=== PATIENT | male | born 1965 | race Caucasian/White ===

== ENCOUNTER 2018-07-22 00:44 | Emergency (ER) | payer OTHER ==
--- OUTSIDE RECORDS SUMMARY | 2018-07-22 00:47 | XMS REPORT ---
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 Problem Seasonal allergic rhinitis, J30.2 Active unspecified trigger Problem Hypothyroidism E03.9 Active Problem SEBLE (obstructive sleep apnea) G47.33 Active Problem Hypertension I10 Active Problem Asymmetrical sensorineural hearing H90.5 Active loss Problem BMI 40.0-44.9, adult Z68.41 Active Problem Skin lesion L98.9 Active Problem Pure hypercholesterolemia E78.00 Active Assessment Pure hypercholesterolemia E78.00 Active Assessment Seasonal allergic rhinitis, J30.2 Active unspecified trigger Assessment SEBLE (obstructive sleep apnea) G47.33 Active Assessment Hypothyroidism E03.9 Active Medications Medication Code Code Instructions Start End Date Status Dosage System Date Montelukast [facility] 24909056210 10 MG Orally September Active 1 tablet in Sodium Once a day 2017 the evening Tarka ND 28520083188 4-240 MG Orally Active 1 tablet Once a day with food Fenofibric Acid ND 54490951276 135 MG Orally Active 1 capsule Once a day Flonase [facility] 39990561413 50 MCG/ACT September Active 1 spray in Nasally Once a 2017 each day nostril Clarinex-D 12 [facility] 59558099748 2.5-120 MG September Active 1 tablet Hour Orally every 12 2017 hrs Zocor [facility] 57401829802 40 MG Orally Active 1 tablet in Once a day the evening Synthroid ND 52263985425 112 MCG Orally Active 1 tablet on Once a day an empty stomach in the morning Neomycin-Polymy ND 07456771477 40-337251 otic September Active as directed denisse FLOWERS tid in the 2017 affected ear Niacin ND 06224365431 500 MG Orally Active 1 tablet Once a day with food Results No Known Results Summary Purpose eClinicalWorks Submission
--- OUTSIDE RECORDS SUMMARY | 2018-07-22 00:48 | XMS REPORT ---
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 Problem Seasonal allergic rhinitis, J30.2 Active unspecified trigger Problem Hypothyroidism E03.9 Active Problem SEBLE (obstructive sleep apnea) G47.33 Active Problem Hypertension I10 Active Problem Asymmetrical sensorineural hearing H90.5 Active loss Problem BMI 40.0-44.9, adult Z68.41 Active Problem Skin lesion L98.9 Active Problem Pure hypercholesterolemia E78.00 Active Assessment Pure hypercholesterolemia E78.00 Active Assessment Hypothyroidism E03.9 Active Assessment Hypertension I10 Active Assessment SEBLE (obstructive sleep apnea) G47.33 Active Assessment 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 Active Medications Medication Code Code Instructions Start End Status Dosage System Date Date Zocor [facility] 84764768905 40 MG Orally Active 1 tablet Once a day in the evening Clarinex-D 12 [facility] 48398890858 2.5-120 MG Marlyn Active 1 tablet Hour Orally every 2017 hrs Synthroid [facility] 91920203271 112 MCG Orally Active 1 tablet Once a day on an empty stomach in the morning Tarka [facility] 72262249181 4-240 MG Orally Active 1 tablet Once a day with food Fenofibric Acid [facility] 73452806385 135 MG Orally Active 1 capsule Once a day Flonase [facility] 08501145277 50 MCG/ACT Active 1 spray in Nasally Once a each day nostril Montelukast ND 74682943365 10 MG Orally Active 1 tablet Sodium Once a day in the evening Niacin ND 50911365339 500 MG Orally Active 1 tablet bid with food Results No Known Results Summary Purpose eClinicalWorks Submission
--- OUTSIDE RECORDS SUMMARY | 2018-07-22 00:48 | XMS REPORT ---
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 Assessment SEBLE (obstructive sleep apnea) G47.33 Active Assessment BMI 40.0-44.9, adult Z68.41 Active Medications Medication Code Code Instructions Start End Status Dosage System Date Date Niacin [facility] 44819002905 500 MG Orally Active 1 tablet bid with food Synthroid [facility] 33745216248 112 MCG Active TAKE 1 TABLET ONCE DAILY Zocor [facility] 55539316460 40 MG Active TAKE 1 TABLET ONCE DAILY Flonase ND 50849695512 50 MCG/ACT Active 1 spray in Nasally Once a each nostril day Montelukast [facility] 41998326571 10 MG Orally Active 1 tablet in Sodium Once a day the evening Tarka [facility] 55285248349 4-240 MG Active TAKE 1 TABLET ONCE DAILY ATBEDTIME Fenofibric Acid ND 74164706941 135 MG Active TAKE 1 CAPSULE ONCE DAILY Clarinex-D [facility] 47375221031 2.5-120 MG September Active 1 tablet Hour Orally every 12 2017 hrs Results No Known Results Summary Purpose eClinicalWorks Submission
[2018-07-22 01:23] LABS: Absolute Lymphocytes (CBC) 2.8 K/uL (0.7-4.9); Absolute Monocytes 1.3 K/uL (0.1-1.3); Absolute Neutrophil 5.9 K/uL (1.8-8.0); Eosinophils % 3.5 % (0-4.4); Lymphocytes % 27.1 % (15.3-44.8); MPV 9.6 fL (7.6-11.3); Monocytes % 12.4 % (3.3-12.3); RBC Red Blood Cell Count 5.42 M/uL (4.33-5.43)
[2018-07-22] MEDS ORDERED: NA CHLORIDE 0.9% 1,000 ML ONE (01:25)
[2018-07-22] MEDS ORDERED: ONDANSETRON 4 MG/2 ML VIAL ONE (01:25)
[2018-07-22 01:39] LABS: ALT/SGPT 42 U/L (12-78); AST/SGOT 18 U/L (15-37); Albumin 4.3 g/dL (3.4-5.0); Alkaline Phosphatase 57 U/L (45-117); BUN Blood Urea Nitrogen 18 mg/dL (7-18); Bicarbonate 27 mmol/L (21-32); Bilirubin Direct < 0.1 mg/dL (0-0.2); Bilirubin Total 0.3 mg/dL (0.2-1.0); Glucose Level 129 mg/dL (74-106); Lipase 108 U/L (73-393); Potassium 3.9 mmol/L (3.5-5.1); Protein, Total 7.7 g/dL (6.4-8.2); Sodium Level 139 mmol/L (136-145); Troponin (Emerg Dept Use Only) < 0.02 ng/mL (0.0-0.045)
--- NOTE | 2018-07-22 02:25 | ER ---
Nurse's Notes [facility] Name: Levi Downing Age: 52 yrs Sex: Male : 1965 Arrival Date: 07/22/2018 Time: 00:48 Bed 2 Private MD: Thanh Keys Diagnosis: Unspecified abdominal pain Presentation: 07/22 01:05 Presenting complaint: Patient states: epigastric and abd pain since 2100. pt denies ak1 N/V/D. pt denies SOB. Transition of care: patient was not received from another setting of care. Onset of symptoms was July 22, 2018. Risk Assessment: Do you want to hurt yourself or someone else? Patient reports no desire to harm self or others. Initial Sepsis Screen: Does the patient meet any 2 criteria? No. Patient's initial sepsis screen is negative. Does the patient have a suspected source of infection? No. Patient's initial sepsis screen is negative. Care prior to arrival: 150mg tramadol with no relief. 01:05 Method Of Arrival: Ambulatory ak1 01:05 Acuity: LAN 3 ak1 Triage Assessment: 01:07 General: Appears in no apparent distress. Behavior is calm, cooperative. Pain: ak1 Complains of pain in epigastric area, right upper quadrant and left upper quadrant. EENT: No signs and/or symptoms were reported regarding the EENT system. Neuro: No deficits noted. Cardiovascular: No deficits noted. Respiratory: No deficits noted. GI: Abdomen is round Bowel sounds present X 4 quads. Reports upper abdominal pain, cramping, epigastric pain. : No signs and/or symptoms were reported regarding the genitourinary system. Derm: No signs and/or symptoms reported regarding the dermatologic system. Musculoskeletal: No signs and/or symptoms reported regarding the musculoskeletal system. Historical: - Allergies: 01:07 Sulfa (Sulfonamide Antibiotics); ak1 - Home Meds: 01:07 Simvastatin Oral [Active]; ak1 - PMHx: 01:07 High Cholesterol; Hypertension; ak1 - PSHx: 01:07 Vasectomy; ak1 - Immunization history:: Adult Immunizations unknown. - Social history:: Smoking status: Patient/guardian denies using tobacco. - Ebola Screening: : No symptoms or risks identified at this time. Screenin:08 Abuse screen: Denies threats or abuse. Denies injuries from another. Nutritional ak1 screening: No deficits noted. Tuberculosis screening: No symptoms or risk factors identified. Fall Risk None identified. Assessment: 01:12 Pain: Pain does not radiate. Pain began 4 hours ago. ak1 02:19 General: Appears in no apparent distress. pt refused CT scan, pt stated he is feeling ak1 better. ERP notified. pt to sign out AMA. . Vital Signs: 01:04 BP 145 / 79; Pulse 73; Resp 18; Temp 98.4(O); Pulse Ox 97% on R/A; Weight 136.08 kg ak1 (R); Height 6 ft. 0 in. (182.88 cm) (R); Pain 8/10; 02:19 BP 129 / 78; Pulse 70; Resp 16; Pulse Ox 96% on R/A; Pain 0/10; ak1 01:04 Body Mass Index 40.69 (136.08 kg, 182.88 cm) ak1 ED Course: 00:48 Patient arrived in ED. es 00:48 Thanh Keys MD is Private Physician. es 00:51 Jc Vasquez NP is PHCP. pm1 00:51 Quentin Hines MD is Attending Physician. pm1 01:04 Sirisha Ibarra, ISHMAEL is Primary Nurse. ak1 01:04 Arm band placed on Patient placed in an exam room, on a stretcher, on pulse oximetry, ak1 Patient notified of wait time. 01:06 Triage completed. ak1 01:12 Patient has correct armband on for positive identification. Placed in gown. Bed in low ak1 position. Call light in reach. Side rails up X 1. engine monitor on. Pulse ox on. NIBP on. 01:12 Patient maintains SpO2 saturation greater than 95% on room air. ak1 01:20 No provider procedures requiring assistance completed. Inserted saline lock: 20 gauge tl1 in left antecubital area, using aseptic technique. Blood collected. 02:28 IV discontinued, intact, bleeding controlled, No redness/swelling at site. Pressure ak1 dressing applied. Administered Medications: 01:17 Drug: Zofran 4 mg Route: IVP; Infused Over: 2 mins; Site: left antecubital; tl1 02:18 Follow up: Response: No adverse reaction ak1 01:18 Drug: NS 0.9% 1000 ml Route: IV; Rate: 1000 ml; Site: left antecubital; tl1 02:29 Follow up: IV Status: Completed infusion; IV Intake: 1000ml ak1 02:18 Not Given (Patient Refused): morphine 4 mg IVP once ak1 Intake: 02:29 IV: 1000ml; Total: 1000ml. ak1 Outcome: 02:24 Discharge ordered by pm1 02:27 AMA AMA form signed ak1 02:27 Condition: improved 02:28 Patient left the ED. ak1 Signatures: Rosa Huston Tonya RN RN tl1 Sirisha Ibarra RN RN ak1 Jc Vasquez, MEDICAL GRADE SHOEMAKER MEDICAL GRADE SHOEMAKER pm1
--- NOTE | 2018-07-22 02:25 | EDPHYS ---
Physician Documentation [facility] Name: Levi Downing Age: 52 yrs Sex: Male : 1965 Arrival Date: 07/22/2018 Time: 00:48 Bed 2 Private MD: Thanh Keys ED Physician Quentin Hines HPI: 07/22 01:30 This 52 yrs old Male presents to ER via Ambulatory with complaints of Chest pm1 Pain, Abdominal Pain. 01:30 The patient presents with abdominal pain in the upper abdomen. Onset: The pm1 symptoms/episode began/occurred today. The symptoms do not radiate. Associated signs and symptoms: none. Pertinent negatives: nausea, vomiting, and diarrhea, chest pain, constipation, diarrhea, dysuria, fever, headache, shortness of breath. The symptoms are described as burning. Modifying factors: The symptoms are alleviated by nothing, the symptoms are aggravated by food, Ate spicy food prior to onset of pain. Severity of pain: in the emergency department the pain is actually worse. The patient has experienced similar episodes in the past, and the symptoms today are exactly the same, lasted longer. The patient has not recently seen a physician. Historical: - Allergies: 01:07 Sulfa (Sulfonamide Antibiotics); ak1 - Home Meds: 01:07 Simvastatin Oral [Active]; ak1 - PMHx: 01:07 High Cholesterol; Hypertension; ak1 - PSHx: 01:07 Vasectomy; ak1 - Immunization history:: Adult Immunizations unknown. - Social history:: Smoking status: Patient/guardian denies using tobacco. - Ebola Screening: : No symptoms or risks identified at this time. ROS: 01:30 Constitutional: Negative for fever, chills, and weight loss, Eyes: Negative for injury, pm1 pain, redness, and discharge, ENT: Negative for injury, pain, and discharge, Neck: Negative for injury, pain, and swelling, Cardiovascular: Negative for chest pain, palpitations, and edema, Respiratory: Negative for shortness of breath, cough, wheezing, and pleuritic chest pain. 01:30 Back: Negative for injury and pain, : Negative for injury, bleeding, discharge, and swelling, MS/Extremity: Negative for injury and deformity, Skin: Negative for injury, rash, and discoloration, Neuro: Negative for headache, weakness, numbness, tingling, and seizure. 01:30 Abdomen/GI: Positive for abdominal pain, of the right upper quadrant and left upper quadrant, Negative for nausea, vomiting, and diarrhea. Exam: 01:30 Constitutional: This is a well developed, well nourished patient who is awake, alert, pm1 and in no acute distress. Head/Face: Normocephalic, atraumatic. Eyes: Pupils equal round and reactive to light, extra-ocular motions intact. Lids and lashes normal. Conjunctiva and sclera are non-icteric and not injected. Cornea within normal limits. Periorbital areas with no swelling, redness, or edema. ENT: Nares patent. No nasal discharge, no septal abnormalities noted. Tympanic membranes are normal and external auditory canals are clear. Oropharynx with no redness, swelling, or masses, exudates, or evidence of obstruction, uvula midline. Mucous membranes moist. Neck: Trachea midline, no thyromegaly or masses palpated, and no cervical lymphadenopathy. Supple, full range of motion without nuchal rigidity, or vertebral point tenderness. No Meningismus. Chest/axilla: Normal chest wall appearance and motion. Nontender with no deformity. No lesions are appreciated. Cardiovascular: Regular rate and rhythm with a normal S1 and S2. No gallops, murmurs, or rubs. Normal PMI, no JVD. No pulse deficits. Respiratory: Lungs have equal breath sounds bilaterally, clear to auscultation and percussion. No rales, rhonchi or wheezes noted. No increased work of breathing, no retractions or nasal flaring. 01:30 Back: No spinal tenderness. No costovertebral tenderness. Full range of motion. Skin: Warm, dry with normal turgor. Normal color with no rashes, no lesions, and no evidence of cellulitis. MS/ Extremity: Pulses equal, no cyanosis. Neurovascular intact. Full, normal range of motion. 01:30 Abdomen/GI: Inspection: obese Bowel sounds: normal, Palpation: abdomen is soft and non-tender, in all quadrants, mass, is not appreciated, rebound tenderness, is not appreciated. 01:30 Neuro: Orientation: is normal, Motor: is normal, moves all fours. Vital Signs: 01:04 BP 145 / 79; Pulse 73; Resp 18; Temp 98.4(O); Pulse Ox 97% on R/A; Weight 136.08 kg ak1 (R); Height 6 ft. 0 in. (182.88 cm) (R); Pain 8/10; 02:19 BP 129 / 78; Pulse 70; Resp 16; Pulse Ox 96% on R/A; Pain 0/10; ak1 01:04 Body Mass Index 40.69 (136.08 kg, 182.88 cm) ak1 MDM: 00:51 Patient medically screened. pm1 02:22 Data reviewed: vital signs. Data interpreted: Pulse oximetry: on room air is 96 %. pm1 Interpretation: normal. Counseling: I had a detailed discussion with the patient and/or guardian regarding: lab results. 02:22 Refusal of service: The patient/guardian displays adequate decision making capability pm1 and despite a detailed discussion of alternatives, benefits, risks, and consequences refuses: CT Scan, Patient's pain has completely resolved and he wants to forgo the CT and would like to go home. Patient offered prescriptions and patient refused. 07/22 01:00 Order name: Basic Metabolic Panel; Complete Time: :44 pm07/22 01:00 Order name: CBC with Diff; Complete Time: :44 pm07/22 01:00 Order name: Creatinine for Radiology; Complete Time: pm07/22 01:00 Order name: Hepatic Function; Complete Time: pm07/22 01:00 Order name: Lipase; Complete Time: :44 pm07/22 01:00 Order name: Troponin (emerg Dept Use Only); Complete Time: :44 pm07/22 01:00 Order name: IV Saline Lock; Complete Time: :20 pm07/22 01:00 Order name: Labs collected and sent; Complete Time: 01:20 pm1 Administered Medications: 01:17 Drug: Zofran 4 mg Route: IVP; Infused Over: 2 mins; Site: left antecubital; tl1 02:18 Follow up: Response: No adverse reaction ak1 01:18 Drug: NS 0.9% 1000 ml Route: IV; Rate: 1000 ml; Site: left antecubital; tl1 02:29 Follow up: IV Status: Completed infusion; IV Intake: 1000ml ak1 02:18 Not Given (Patient Refused): morphine 4 mg IVP once ak1 Disposition: 06:18 Co-signature as Attending Physician, Quentin Hines MD I agree with the assessment and tw4 plan of care. Disposition: 07/22/18 02:25 Patient has left against medical advice. Impression: Unspecified abdominal pain. - Patients states they are going to Home. - Condition is Undetermined. - Discharge Instructions: Abdominal Pain, Adult. Follow up: Private Physician; When: 2 - 3 days; Reason: Recheck today's complaints, Continuance of care, Re-evaluation by your physician. - Problem is new. - Symptoms are resolved. Signatures: Dispatcher [employer] [facility] Loretta Smith RN RN tl1 Sirisha Ibarra RN RN ak1 Jc Vasquez, JACK PRIZER JACK PRIZER pm1 Quentin Hines MD MD tw4 Corrections: (The following items were deleted from the chart) 02:22 01:01 Abdomen Pelvis W Con+CT.RAD.BRZ ordered. [facility] 02:25 02:24 07/22/2018 02:24 Discharged to Home. Impression: Unspecified abdominal pain. pm1 Condition is Stable. Forms are Medication Reconciliation Form, Thank You Letter, Antibiotic Education, Prescription Opioid Use. Follow up: Emergency Department; When: As needed; Reason: Worsening of condition. Follow up: Private Physician; When: 2 - 3 days; Reason: Recheck today's complaints, Continuance of care, Re-evaluation by your physician. Problem is new. Symptoms have improved. pm1 02:28 02:25 07/22/2018 02:25 Patients has left against medical advice. Impression: ak1 Unspecified abdominal pain. Patient states they are going to Home. Condition is Undetermined. Follow up: Private Physician; When: 2 - 3 days; Reason: Recheck today's complaints, Continuance of care, Re-evaluation by your physician. Problem is new. Symptoms are resolved. pm1
--- NOTE | 2018-07-22 16:22 | EKG ---
Test Date: 2018-07-22 Test Time: 00:57:46 Molecular Technologist: EMERY MEASUREMENT RESULTS: Intervals: Rate: 72 KS: 170 QRSD: 98 QT: 396 QTc: 433 [place]: P: 43 KS: 170 QRS: -32 T: 45 INTERPRETIVE STATEMENTS: Normal sinus rhythm Left axis deviation Incomplete right bundle branch block Voltage criteria for left ventricular hypertrophy Abnormal ECG No previous ECG available for comparison Electronically Signed On 07-22-18 16:20:52 POSTDOCTORAL FELLOW by Rodolfo Rondon
== END 2018-07-22 02:28 | disposition left against medical advice (07) ==
LOC: ER 00:44
DX: R07.9 Chest pain, unspecified (principal); I45.10 Unspecified right bundle-branch block; R10.10 Upper abdominal pain, unspecified; Z88.2 Allergy status to sulfonamides; I10 Essential (primary) hypertension; E78.00 Pure hypercholesterolemia, unspecified; Z53.29 Procedure and treatment not carried out because of patient's decision for other reasons
CPT/HCPCS: 36415; 80048; 80076; 83690; 84484; 85025; 93005; 96361; 96374; 99285; J2405; J7030

== ENCOUNTER 2020-02-14 06:34 | Day surgery (SDC) | payer OTHER ==
[2020-02-13 14:23] LABS: Absolute Lymphocytes (CBC) 2.5 K/uL (0.7-4.9); Basophils % 1.3 % (0-1.3); Hematocrit 45.2 % (39.6-49.0); Lymphocytes % 30.6 % (15.3-44.8); MPV 8.5 fL (7.6-11.3)
[2020-02-13 14:34] LABS: ALT/SGPT 32 U/L (12-78); AST/SGOT 20 U/L (15-37); Alkaline Phosphatase 54 U/L (45-117); Amylase 78 U/L (25-115); BUN Blood Urea Nitrogen 10 mg/dL (7-18); Bicarbonate 28 mmol/L (21-32); Bilirubin Direct 0.2 mg/dL (0-0.2); Bilirubin Total 0.5 mg/dL (0.2-1.0); Glucose Level 89 mg/dL (74-106); Lipase 86 U/L (73-393); Potassium 4.1 mmol/L (3.5-5.1); Protein, Total 7.7 g/dL (6.4-8.2); Sodium Level 139 mmol/L (136-145)
--- NOTE | 2020-02-13 15:04 | RAD REPORT ---
EXAM DESCRIPTION: RAD - Chest Pa And Lat (2 Views) - 02/13/2020 2:45 pm CLINICAL HISTORY: pre op, hypertension COMPARISON: None TECHNIQUE: Frontal and lateral views of the chest were obtained. FINDINGS: The lungs are clear. No hilar mass or lymphadenopathy identified. Minimal prominence of t he interstitial pattern believed be baseline. Heart size is normal and central vasculature is within normal limits. No pleural effusion or pneumothorax seen. No acute bony finding noted. No aortic ab normality. IMPRESSION: No acute cardiopulmonary process.
--- OUTSIDE RECORDS SUMMARY | 2020-02-14 06:39 | XMS REPORT | Continuity of Care Document ---
:[address] [facility] t Address [address] [place] [address] Care Team Providers Name Role Phone Unavailable Unavailable Unavailable Problems Condition Condition Condition Status Onset Resolution Last Treating Co mments Source Name Details Category Date Date Treatment Clinician Date Hypertensi Hypertensi Diagnosis [facility] HDL HDL Diagnosis Active [facility] deficiency deficiency [place] [facility] Seasonal Seasonal Problem Active [facility] allergic allergic [facility] rhinitis, rhinitis, Mario josé miguel unspecifie unspecifie l d trigger d trigger Outp ati ent Clinics Hypothyroi Hypothyroi Diagnosis Active [facility] dism dism [facility]ics SEBLE SEBLE Problem Active [facility] (obstructi (obstructi [place] - ve sleep ve sleep Memori a apnea) apnea) l Outpati ent Clinics Asymmetric Asymmetric Problem Active [facility] - sensorineu sensorineu Me moria ral ral l hearing hearing Outpati loss loss ent Clinics BMI BMI Diagnosis Active [facility] 40.0-44.9, 40.0-44.9, [place] - adult adult [facility] Skin Skin Problem Active [facility] lesion lesion [facility]ics Pure Pure Problem Active [facility] hyperchole hyperchole [place] - sterolemia sterolemia Me moria l Outpati ent Clinics Insulin Insulin Diagnosis Active [facility] resistance resistance [place] [facility] Allergies, Adverse Reactions, Alerts Allergy Allergy Status Severity Reaction(s) Onset Inactive Treating Comm ents Source Name Type Date Date Clinician Sulfa Adverse Active Info Not [facility] Reaction Available [facility] Medications Ordered Filled Start Stop Current Ordering Indication Dosage Frequency Signature Comments Components Source Medication Medication Date Date Medication? Clinician (SIG) Name Name Omeprazole Omeprazole Yes Thanh [address] [facility] 2-18 [place] [facility] Out[facility] Clinics [facility] Yes Thanh [address] [facility] Sodium Sodium 4-19 [place] in the [facility] 00:00: evening [facility] Outpati ent Clinics Flonase Flonase Yes Thanh [address] [facility] 4-19 [place] each [facility] 00:[facility]: nostril [facility] Clin[facility] Clarinex-D Clarinex-D Yes Thanh [address] [facility] 12 Hour 12 Hour 4-19 [place] [facility] [place] Thanh TAKE [address] [facility] [place] TABLET [facility] - ONCE DAILY [facility] ATBEDTIME l Outpati ent Clinics Fenofibric Fenofibric Yes Thanh TAKE [address] [facility] Acid Acid [place] CAPSULE [facility] DAILY [facility] ent Clinics Niacin Niacin Yes Thanh [address] [facility] [place] with food [facility] Synthroid Synthroid Yes Thanh TAKE [address] [place] TABLET [facility] ON[facility] DAILY [facility] Clinics Zocor Zocor Yes Thanh TAKE [address] [facility] [place] TABLET [facility] ONCE DAILY [facility] Out[facility]i ent Clinics Nexium 24HR Nexium 24HR Yes Thanh [address] [facility] [place] [facility] Procedures This patient has no known procedures. Encounters Start End Encounter Admission Attending Care Care Encounter Source Date/Time Date/Time Type Type Clinicians Facility Department ID 2020-01-26 Outpatient [id number] 08[facility]18[facility] [facility] 2018-09-29 2018-09-29 Outpatient Nneka Jean [id number] [facility] 14:00[facility]00 14[facility]00:00 [facility] Medicine Outpati ent [facility] 2018-08-05 2018-08-05 Outpatient Nneka Jean [id number] [facility] 11:15:00 11:15:00 [facility] Medicine Outpati ent [facility] 2018-07-25 2018-07-25 [facility] [id number] 13:00[facility]00 13:00:00 [facility] Medicine Outpati ent Clinics 2018-06-30 2018-06-30 [facility] [id number] [facility] 14:[facility] 14:00:00 [facility] Medicine Outpati ent Clinics 2017-12-30 2017-12-30 [facility] [id number] 14:00[facility] 14:00:00 [facility] Medicine Outpati ent Clinics 2017-09-23 2017-09-23 [facility] [id number] 13[facility]00 13:00:00 [facility] Results This patient has no known results.
[2020-02-14] MEDS ORDERED: Ringers Lactate 1,000 ML IV ONE ×2 (06:58→09:16)
[2020-02-14] MEDS ORDERED: propofoL 200 MG/20 ML VIAL IV ONE (07:17)
[2020-02-14] MEDS ORDERED: ROCURONIUM 50 MG/5 ML VIAL IV ONE (07:18)
[2020-02-14] MEDS ORDERED: LIDOCAINE 2% MPF 5 ML VIAL ONE (07:18)
[2020-02-14] MEDS ORDERED: GLYCOPYRROLATE 0.2 MG/ML SYR ONE (07:18)
[2020-02-14] MEDS ORDERED: MIDAZOLAM HCL 2 MG/2 ML INJ ONE (07:19)
[2020-02-14] MEDS ORDERED: FENTANYL CITR 250 MCG/5 ML ONE (07:19)
[2020-02-14] MEDS ORDERED: ONDANSETRON 4 MG/2 ML VIAL ONE ×2 (07:23→09:55)
[2020-02-14] MEDS ORDERED: CEFOXITIN/SWI 1gm 1 GM/10 ML SYR ONE (07:48)
--- NOTE | 2020-02-14 08:37 | P.BOP ---
Preoperative diagnosis: sympt. cholelithiasis,tender incarcerated umbilical hernia, RUQ abd pain Postoperative diagnosis: same plus cholecystitis Primary procedure: 1. Laparoscopic cholecystectomy Secondary procedure: 2. open repair of tender incarcerated umbilical hernia [place] Senator: SHIRIN MCQUEEN (railroad engineer) Estimated blood loss: <10cc Specimen: gb Findings: as above Anesthesia: General Complications: None Transferred to: Recovery Room Condition: Good
[2020-02-14] MEDS: HYDROMORPHONE HCL 2 MG/ML inj ONE ×4 (09:04→09:18)
[2020-02-14] MEDS: MEPERIDINE HCL 50 MG/ML ONE ×2 (09:18→09:23)
[2020-02-14 09:29] VITALS: TEMP 97.8; O2SAT 96
--- NOTE | 2020-02-14 09:33 | OP ---
Date of Procedure: 02/14/2020 Surgeon: Jose Jacobo MD Business Attorney: KALANI Duran. Preoperative Diagnosis: Symptomatic cholelithiasis, tender incarcerated umbilical hernia, right uppe r quadrant abdominal pain. Postoperative Diagnosis: Symptomatic cholelithiasis, tender incarcerated umbilical hernia, right upp er quadrant abdominal pain plus acute cholecystitis. Procedures: 1.Laparoscopic cholecystectomy. 2.Open repair of tender incarcerated umbilical hernia. Ebl: Less than 10 mL. Anesthesia: General plus local. Indications: This is the case of a patient who come to us with on and off epigastric right upper lisa drant pain radiating to the back, diagnosed with some symptomatic cholelithiasis and then cholecystit is. Patient also has an incarcerated tender umbilical hernia that will be repaired at this time. He also has inguinal hernia that will be addressed eventually since it is not a completely clean case. The benefits, alternatives, and risks of laparoscopic, possible open cholecystectomy, umbilical shwetha ia repair fully explained, which include, but not limited to infection, bleeding, damage to adjacent structures as complication, choledocholithiasis, bile leak, pancreatitis, NH and even . He also understands this may not relieve the symptoms. He might need more than one surgical intervention. He understands the importance of no heavy lifting to minimize the chance of recurrence of hernia. He signed a consent. Description Of Procedure: The patient was brought to the operating room, placed in supine position. Anesthesia was done without complication. Abdominal area was prepped and draped in a usual sterile fashion. Local anesthesia was applied followed by sharp incision of the skin in the infraumbilical r egion. Immediately, we noticed a hernia sac present to the umbilical skin. We opened the hernia sac , noticed incarcerated omentum after removing some adhesions from it. We were able to reduce the ome ntum back into the abdominal cavity after fully inspecting and making sure there was no bleeding. He rnia sac was removed. Fascial edges were identified, opened little bit more to accommodate my Chavo trocar after placing Vicryl #1 inside of the fascia. Once the Chavo trocar was introduced, no blee ding was obtained. I placed 3 more trocars under direct visualization in the right upper quadrant. This allowed me to put a grasper in the fundus of the gallbladder and another grasper in the infundib ulum retracting the gallbladder in the inferolateral fashion exposing the triangle of Calot obtaining critical view. Cystic duct and cystic artery were clearly isolated free circumferentially and a con nection between those and the gallbladder were clearly identified. At that moment, I proceeded to li gate those by using at least 3 clips proximal, 1 clip distal, ligation in the middle. Same was done with the cystic artery. No bile leak. No bleeding. Gallbladder was removed from liver using Bovie cauterizer and removed from abdominal cavity using EndoCatch through umbilical incision. It was insp ected once again. No bile leak. No bleeding. At that moment, I proceeded to remove the trocars und er direct vision, deflated pneumoperitoneum, closed the fascia with #1 Vicryl, irrigated subcutaneous tissue, closed that with 3-0 chromic and then skin in a subcuticular fashion, Steri-Strips on top. The patient tolerated the procedure well. The patient was sent to Recovery in stable condition. Disposition: Home. Activity: As tolerated. No heavy lifting. Plan: Follow up in my office in 1 week. Call for appointment at [phone]. Keep area dry for 48 will[address] rs, then may shower. Keep Steri-Strip intact. Medications: For medications see orders. DERRICK/LOYDA Voice ID: [id number] Report ID: [id number]
[2020-02-14] MEDS ORDERED: CODEINE 30MG/APAP 300MG TAB ONE (09:55)
[2020-02-14 10:01] VITALS: BP 122/57
--- NOTE | 2020-02-15 05:59 | EKG ---
Test Date: 2020-02-13 Test Time: 14:07:06 Block Operator: MARTHA MEASUREMENT RESULTS: Intervals: Rate: 61 TN: 146 QRSD: 92 QT: 420 QTc: 422 [place]: P: 67 TN: 146 QRS: -14 T: 47 INTERPRETIVE STATEMENTS: Normal sinus rhythm Voltage criteria for left ventricular hypertrophy Abnormal ECG Compared to ECG 07/22/2018 00:57:46 Left-axis deviation no longer present Incomplete right bundle-branch block no longer present Electronically Signed On 02-15-20 05:55:41 CDT by Rodolfo Rondon
== END 2020-02-14 10:40 | disposition home or self-care (01) ==
LOC: OR 06:34
PROVIDERS: ATTEND Surgery
PROC: 0WQF0ZZ Repair Abdominal Wall, Open Approach (ICD-10-PCS; 2020-02-14)
PROC: 0FT44ZZ Resection of Gallbladder, Percutaneous Endoscopic Approach (ICD-10-PCS; principal; 2020-02-14 07:30)
DX: K80.12 Calculus of gallbladder with acute and chronic cholecystitis without obstruction (principal); K42.0 Umbilical hernia with obstruction, without gangrene; I10 Essential (primary) hypertension; Z20.828 Contact with and (suspected) exposure to other viral communicable diseases
CPT/HCPCS: 47562; 49587; 93005; 85025; 80048; 36415; 82150; 80076; 88302; 88304; 83690; 71046; U0002; J2704; J2250; J1170; J3010; J2175; J7120 ×2; J2405 ×2